=== PATIENT | male | born 2000 | race Caucasian/White ===

== ENCOUNTER 2025-01-10 16:58 | Emergency (ER) | payer OTHER, SELFPAY ==
--- OUTSIDE RECORDS SUMMARY | 2025-01-10 17:04 | XMS_ITS | Clinical Summary ---
Author Organization [facility] [employer] Address [address] [place] [id number] Care Team Providers Care Motor Man Name Role Phone Unavailable Primary Care Provider Unavailabl e Active Problems No known active problems Social History Tobacco Use Types Packs/Day Years Used Date Smoking Tobacco: Never Assessed Sex and Gender Information Value Date Recorded Sex Assigned at Not on file Legal Sex Male 7:52 PM [employer] Gender Identity Not on file Sexual Orientation Not on file Last Filed Vital Signs Vital Sign Reading Time Taken Comments Blood Pressure 112/80 03/02/2023 1:14 PM CDT Pulse - - Temperature - - Respiratory Rate - - Oxygen Saturation - - Inhaled Oxygen Concentration - - Weight 109.8 kg (242 lb) 03/02/2023 1:14 PM CDT Height 165.1 cm (5' 5 ) 03/02/2023 1:14 PM CDT Body Mass Index 40.27 03/02/2023 1:14 PM CDT Plan of Treatment Health Maintenance Due Date Last Done Comments HPV VACCINES (1 - Male 3-dos e series) 2016 DTAP/TDAP/TD VACCINES (1 - Tdap) 2020 HEPATITIS B VACCINES (1 of 3 - 19+ 3-dose series) 2020 INFLUENZA VACCINE (#1) 2024 PNEUMOCOCCAL VACCINE 0-49 YEARS Aged Out No longer eligible based on patient's age to complete this topic Insurance ALLEGIANCE OPEN ACCESS
[2025-01-10 17:10] VITALS: BP 136/94; PULSE 112; RESP 18; TEMP 37.2; O2SAT 98
--- NOTE | 2025-01-10 17:19 | ED_ITS ---
HPI - URI/Sore Throat General Chief Complaint: Upper Respiratory Infection Stated Complaint: cough Time Seen by Provider: 01/10/25 17:01 Source: patient and family Mode of arrival: ambulatory Limitations: no limitations History of Present Illness HPI Narrative: 24-year-old male presents to [facility] with complaints of productive cough of yellow-colored phlegm, fevers up to 101, nasal congestion, body aches and chills for the past 1-2 days. Patient reports that she has been taking [id number] Tylenol with minimal relief. Patient reports that he did recently finish a round of amoxicillin after having oral surgery. Patient denies nausea, vomiting, diarrhea, shortness of breath or wheezing. Patient is a nonsmoker. Patient reports that his girlfriend was recently ill with cold- like symptoms. MD elicited complaint: fever, cough, rhinorrhea and nasal congestion Onset (ago): day(s) (1-2) Able to tolerate fluids by mouth: Yes Context: sick contacts Treatments prior to arrival: acetaminophen Related Data Allergies Allergy/AdvReac Type Severity Reaction Status Date / Time No Known Allergies Allergy Verified 01/10/25 17:11 Review of Systems Constitutional: Constitutional: Reports chills, Reports fatigue, Reports fever(s) and Denies weakness ENT: Denies dizziness, Denies epistaxis, Reports nasal congestion and Denies sore throat Respiratory: Respiratory: Reports cough, Denies dyspnea and Denies wheezing Gastrointestinal: Gastrointestinal: Denies diarrhea, Denies nausea and Denies vomiting Musculoskeletal: Musculoskeletal: Denies arthralgias and Denies joint swelling Integumentary/Breasts: Skin/Breast: Denies erythema and Denies rash Neurologic: Denies dizziness, Denies syncope and Denies headache(s) PMFSH Comments At time of signature, I agree with nursing past medical, surgical, social and family history. There is no relevant family history pertinent to the presenting complaint. Exam Const: General: healthy appearing and no acute distress Nutritional Appearance: well nourished Orientation/consciousness: patient oriented x3 Limitations: no limitations HENMT: Head: normal to inspection Ears: external ears normal, TM's normal bilaterally and EAC's normal Face/Nose/Sinus: Normal external nose present Face and sinus: normal facial exam and sinuses nontender Mouth: Yes Normal oral and palatal mucosa present, Yes lip normal and Yes moist mucous membranes Teeth and gingiva: dentition normal Throat: posterior oropharynx normal and uvula midline Eyes: Conjunctivae: conjunctivae normal Neck: Neck: normal visual inspection Resp: Effort & Inspection: normal respiratory effort and not labored Auscultation: clear to auscultation bilaterally, no crackles, no rales, no rhonchi and no wheezes Cardio: Rate: regular rate Rhythm: regular rhythm Heart sounds: no murmurs Skin: General skin exam: normal color Rashes: no rashes Neuro: General: patient oriented x3 and moves all extremities Speech: no rmal speech Psych: Mental Status: mental status grossly normal Affect: normal affect Attitude: cooperative Course Course Level of Care: Express Care Visit Vital Signs Vital signs: Vital Signs Temperature 37.2 C 01/10/25 17:10 Pulse Rate 112 H 01/10/25 17:10 Respiratory Rate 18 01/10/25 17:10 Blood Pressure 136/94 H 01/10/25 17:10 Pulse Oximetry 98 01/10/25 17:10 Oxygen Delivery Room Air 01/10/25 17:10 Temperature 37.2 C 01/10/25 17:10 Pulse Rate 112 H 01/10/25 17:10 Respiratory Rate 18 01/10/25 17:10 Blood Pressure 136/94 H 01/10/25 17:10 Pulse Oximetry 98 01/10/25 17:10 Oxygen Delivery Room Air 01/10/25 17:10 MDM - URI/Sore Throat MDM Narrative Medical decision making narrative: Discussed positive influenza results with patient. Patient declines prescription for Tamiflu. Patient agrees to take cough medication as prescribed. Patient agrees that he is to self quarantine until fever free for 24 hours without the help of Motrin or Tylenol. Instructed patient to proceed to the emergency room if symptoms worsen Differential Diagnosis Differential diagnosis: Likely upper respiratory infection, otitis media and sinusitis Lab Data Labs: Positive influenza a, negative COVID, Critical Care Time Critical Care Time Critical Care Time: No Discharge Plan Discharge Clinical Impression: Influenza Patient Disposition: Home, Self-Care Condition: Stable Instructions: Influenza (ED) Additional Instructions: Rest Increase fluids Alternate Motrin and Tylenol as needed for fever or body aches Take Tessalon as needed for cough You are to self quarantine until your fever free for 24 hours without the help of Motrin or Tylenol Follow-up with primary care provider if symptoms do not improve Proceed Patient Language: Icelandic Prescriptions: New benzonatate 100 mg capsule 100 mg PO BID PRN (Reason: cough) Qty: 20 0RF Follow-up/Referrals: [facility] [Primary Care Provider] - Time of Disposition: 17:27
[2025-01-10 17:25] LABS: EDCOVIDSCREEN Negative (Negative); EDINFLUASCREEN Positive (Negative); EDINFLUBSCREEN Negative (Negative)
== END 2025-01-10 17:28 | disposition home or self-care (01) ==
PROVIDERS: Emergency Provider Nurse Practitioner Family
DX: J10.1 Influenza due to other identified influenza virus with other respiratory manifestations (principal); Z20.822 Contact with and (suspected) exposure to COVID-19
CPT/HCPCS: 87426; 87804; 99203; G0463